=== PATIENT | female | born 1970 | race African-American/Black ===

== ENCOUNTER 2017-02-12 13:29 | Emergency (ER) | payer MEDICAID ==
[~2017-02-12] VITALS: Ht 165.1 cm; Wt 74.0 kg
[2017-02-12] MEDS ORDERED: IBUPROFEN 600MG TABLET PO ONE (14:30)
[2017-02-12 15:10] VITALS: BP 125/78
== END 2017-02-12 15:13 | disposition home or self-care (01) ==
LOC: ER 14:30
DX: S09.90XA Unspecified injury of head, initial encounter (principal); E78.00 Pure hypercholesterolemia, unspecified; F17.200 Nicotine dependence, unspecified, uncomplicated; Z88.5 Allergy status to narcotic agent; W22.8XXA Striking against or struck by other objects, initial encounter; Y93.89 Activity, other specified; Y92.89 Other specified places as the place of occurrence of the external cause; Y99.8 Other external cause status
CPT/HCPCS: 99282

== ENCOUNTER 2017-03-13 09:22 | Emergency (ER) | payer MEDICAID ==
[~2017-03-13] VITALS: Ht 157.5 cm; Wt 68.0 kg
[2017-03-13] MEDS ORDERED: TOPA200 PO (09:29)
[2017-03-13] MEDS ORDERED: NAPR-681 PO (09:29)
[2017-03-13] MEDS ORDERED: METOCLOPRAMIDE HCL 10MG TABLET PO ONE (10:45)
[2017-03-13] MEDS ORDERED: KETOROLAC 30MG/ML VIAL IM ONE (10:45)
[2017-03-13 11:02] VITALS: BP 133/88
== END 2017-03-13 11:59 | disposition home or self-care (01) ==
LOC: ER 10:17
DX: R51 Headache (principal); E78.00 Pure hypercholesterolemia, unspecified; Z87.891 Personal history of nicotine dependence
CPT/HCPCS: 96372; 99283; J1885; J8597

== ENCOUNTER 2017-06-24 15:50 | Emergency (ER) | payer MEDICAID ==
[~2017-06-24] VITALS: Ht 157.5 cm; Wt 75.0 kg
[~2017-06-24 15:50] MED LIST: NAPR-681 PO; TOPA200 PO
[2017-06-24] MEDS ORDERED: IBUPROFEN 400MG TABLET PO ONE (18:45)
[2017-06-24 19:02] VITALS: BP 145/77
== END 2017-06-24 19:20 | disposition home or self-care (01) ==
LOC: ER 17:05
DX: H10.31 Unspecified acute conjunctivitis, right eye (principal); E78.00 Pure hypercholesterolemia, unspecified; J02.9 Acute pharyngitis, unspecified; F17.200 Nicotine dependence, unspecified, uncomplicated; R56.9 Unspecified convulsions; Z88.5 Allergy status to narcotic agent
CPT/HCPCS: 99283

== ENCOUNTER 2017-07-05 18:13 | Emergency (ER) | payer MEDICAID ==
[~2017-07-05] VITALS: Ht 157.5 cm; Wt 75.0 kg
[2017-07-05 18:14] VITALS: BP 136/84
== END 2017-07-06 00:10 | disposition left against medical advice (07) ==
LOC: ER 18:28
DX: Z53.21 Procedure and treatment not carried out due to patient leaving prior to being seen by health care provider (principal)

== ENCOUNTER 2017-09-26 08:51 | Emergency (ER) | payer MEDICAID ==
[~2017-09-26] VITALS: Ht 157.5 cm; Wt 74.0 kg
[2017-09-26] MEDS ORDERED: IBUPROFEN 800MG TABLET PO ONE (14:30)
[2017-09-26] MEDS ORDERED: ONDANSETRON HCL 4MG TABLET PO ONE (14:30)
[2017-09-26 16:43] VITALS: BP 98/76
== END 2017-09-26 16:47 | disposition home or self-care (01) ==
LOC: ER 09:27
DX: R51 Headache (principal); E78.00 Pure hypercholesterolemia, unspecified; Z88.5 Allergy status to narcotic agent
CPT/HCPCS: 81025; 99283; Q0162